=== PATIENT | male | born 1995 | race African-American/Black ===

== ENCOUNTER 2019-08-02 23:47 | Emergency (ER) | payer OTHER ==
[~2019-08-02] VITALS: Ht 175.3 cm; Wt 73.0 kg
[2019-08-02 23:57] VITALS: BP 115/91
[2019-08-03] MEDS ORDERED: TETANUS, DIPHTHERIA, PERTUSSIS VAC/PF 0.5ML (>7YR OLD) IM ONE (00:30)
[2019-08-03] MEDS ORDERED: IBUPROFEN 600MG TABLET PO ONE (00:30)
[2019-08-03] MEDS ORDERED: BACITRACIN ZINC OINT UDPKT TOP ONE (00:30)
== END 2019-08-03 01:29 | disposition home or self-care (01) ==
LOC: ER 23:47 → EDBD 23:47 → ER 08-03 01:29
DX: S81.831A Puncture wound without foreign body, right lower leg, initial encounter (principal); Z98.890 Other specified postprocedural states; W25.XXXA Contact with sharp glass, initial encounter; Y93.89 Activity, other specified; Y92.018 Other place in single-family (private) house as the place of occurrence of the external cause
CPT/HCPCS: 73590; 90471; 90715; 99283